=== PATIENT | female | born 1985 | race Caucasian/White ===

== ENCOUNTER 2016-08-28 15:26 | Emergency (ER) | payer SELFPAY ==
[~2016-08-28] VITALS: Ht 165.1 cm; Wt 90.9 kg
[~2016-08-28 15:26] MED LIST: MOTRIN 800800 MG/TAB PO; NAPROSYN500 MG PO; PRILOTC; ZANAFLEX 4MG TAB4 MG PO
[2016-08-28 15:43] VITALS: BP 125/90; PULSE 89; TEMP 98.8
[2016-08-28] MEDS ORDERED: NORCO 325 MG-51 TAB (15:49)
[2016-08-28 17:03] LABS: PH 5 (5-8); SQUAMOUS EPITHELIAL 0-2 /hpf; URINE APPEARANCE Hazy; URINE BACTERIA None Seen /hpf; URINE BILIRUBIN Negative (NEGATIVE); URINE BLOOD Negative (NEGATIVE); URINE COLOR Yellow; URINE GLUCOSE Negative (NEGATIVE); URINE KETONE Negative (NEGATIVE); URINE UROBILINOGEN Negative (NEGATIVE)
[2016-08-28] MEDS ORDERED: CIPRO 500MG TA500 MG PO (17:48)
== END 2016-08-28 18:31 | disposition home or self-care (01) ==
LOC: COL.ER 15:26
PROVIDERS: Physician Assistant
DX: N39.0 Urinary tract infection, site not specified (principal); R31.9 Hematuria, unspecified
CPT/HCPCS: J1885